=== PATIENT | male | born 1940 | race Caucasian/White ===

== ENCOUNTER → 2017-05-19 | Outpatient (CLI) | payer OTHER ==
[~2017-05-19] MED LIST: SOLI10TA2 PO; ZCRUNK; [UNRECOGNIZED DRUG - CODE] PO
--- NOTE | 2017-05-19 11:46 | DIAGNOSTIC IMAGING REPORT ---
LUMBAR SPINE W/O CONTRAST HISTORY: Pain. Neuropathy. LUMBAR STENOSIS TECHNIQUE: Multiplanar multisequence MRI of the lumbar spine was performed without the use of contrast. COMPARISON: None. FINDINGS: For the purpose of the report the L5-S1 disc space will be located on axial image 2427. Mild degenerative disc change throughout. Unremarkable signal characteristics of the vertebral bodies. No evidence for compression deformity. L1-L2: Minimal broad-based disc bulge. L2-L3: Mild multifactorial narrowing of the spinal canal. Considerable hypertrophic change of posterior facets. Minimal/mild narrowing of the neuroforamina bilaterally. L3-L4: Mild multifactorial narrowing of the spinal canal. Hypertrophic change posterior elements and ligamentum flavum. Slight broad-based disc bulge. L4-L5: Considerable multifactorial spinal stenosis. Moderate narrowing of the neuroforamina bilaterally. L5-S1: Central bulging disc with mild impact anterior thecal sac. Moderate hypertrophic narrowing of the left and to a lesser extent right neuroforamina. IMPRESSION: 1. Multifactorial/multilevel narrowing of the spinal canal . 2. This is most significant at L4-L5 and considered moderate at L3-L4 and L2-L3. 3. Considerable degenerative/hypertrophic change of the posterior elements throughout. The above report was generated using voice recognition software. It may contain grammatical, syntax or spelling errors. Electronically signed by: George Luevano M.D. 05/19/2017 11:45 AM Dictated Date/Time: 05/19/2017 11:41 AM
== END | disposition home or self-care (01) ==
LOC: C.MRIBC 10:38
PROVIDERS: ATTEND Pain Medicine Interventional Pain Medicine
DX: M48.06 Spinal stenosis, lumbar region (principal); M47.816 Spondylosis without myelopathy or radiculopathy, lumbar region